=== PATIENT | female | born 1995 | race Caucasian/White ===

== ENCOUNTER 2021-02-15 15:19 | Emergency (ER) | payer OTHER ==
[~2021-02-15] VITALS: Ht 152.4 cm; Wt 102.1 kg
[2021-02-15] MEDS ORDERED: TYLENOL (16:39)
== END 2021-02-15 20:02 | disposition left against medical advice (07) ==
LOC: ER 15:19
DX: B34.9 Viral infection, unspecified (principal)

== ENCOUNTER 2022-09-13 07:25 | Emergency (ER) | payer OTHER ==
[~2022-09-13] VITALS: Ht 165.1 cm; Wt 108.9 kg
[~2022-09-13 07:25] MED LIST: TYLENOL
== END 2022-09-13 09:05 | disposition home or self-care (01) ==
LOC: ER 07:25
DX: J32.9 Chronic sinusitis, unspecified (principal); Z88.8 Allergy status to other drugs, medicaments and biological substances